=== PATIENT | female | born 1945 | race Caucasian/White ===

== ENCOUNTER → 2016-09-26 | Outpatient (CLI) | payer MEDICARE, BC ==
[~2016-09-26] MED LIST: ALDACTONE25 MG PO; AMARYL4 MG PO; ASPIRIN LO-DOSE81 MG PO; BYDUREON P2 MG/0.65 SUB-Q; COREG12.5 M1 PO; COREG12.5 MG PO; COUMADIN ** IA5 MG PO; CPAP INH; DELTASONE1 MG PO; DELTASONE10 MG PO; DELTASONE5 MG PO; DULCOLAX10 MG R; EFFEXOR XR150 MG PO; FOSAMAX70 MG PO; GLUCOPHAGE XR500 M1 PO; JANUVIA 100 MG100 MG PO; LASIX20 MG PO; LASIX40 MG PO; LIPITOR10 MG PO; LISINOPRIL5 MG PO; LOVENOX 12120 MG/0.8; LOVENOX 4040 MG/0.4 PO; MILK OF MA400 MG/5 M PO; NEURONTIN300 MG PO; NUCYNTA50 MG PO; OXYGEN M-15 INH; PRILOSEC20 MG PO; PRINIVIL OR ZES10 MG PO; REQUIP4 MG PO; RYTHMOL SR (SU225 MG PO; THERAGRAN-M1 TAB PO; TRIACET 0.1% 8080 GM TOP; TYLENOL EXTRA500 MG PO; TYLENOL325 MG PO; ULTRAM50 MG PO; VICTOZA 2-0.6 MG/0.1 SUB-Q; VITAMIN D-32000 UNI1 PO; XANAX0.25 MG PO; ZYLOPRIM100 MG PO
== END | disposition disaster alternative care site (69) ==
LOC: GRAD 13:47
PROC: 3E0U3KZ Introduction of Other Diagnostic Substance into Joints, Percutaneous Approach (ICD-10-PCS; principal; 2016-09-26)
DX: M25.572 Pain in left ankle and joints of left foot (principal)

== ENCOUNTER → 2017-01-26 | Outpatient (CLI) | payer MEDICARE, BC ==
--- NOTE | ~2017-01-26 | NDGEN ---
PATIENT'S NAME: DOLLY AGUILAR [facility] AGE: 71 Y [address] ROOM: [place] [address] LOCATION: [facility] ADMIT DATE: 01/26/2017 Neurodiagnostics DISCHARGE DATE: FAMILY PHYSICIAN: MAY KAY MD ATTENDING PHYSICIAN: JIGNA SALINAS DATE OF PROCEDURE: 01/26/2017 PROCEDURE: Nerve conduction study of the bilateral lower extremities along with an EMG of the bilateral lower extremities. HISTORY: Ms. Aguilar is a 71-year-old female patient who has a longstanding history of diabetes. She has also had a history of bilateral carpal tunnel repair surgeries. She basically is coming in not due to any more numbness into her hands or fingers, but only due to episodes of falling. She denies any new numbness into her toes or into her legs. She denies having any dizziness or lightheadedness when she falls. DESCRIPTION: Nerve conduction studies were performed in the right upper extremity as well as the bilateral lower extremities. Stimulation of the motor, perineal, and tibial nerves as well as the sural nerve; all resulted in absence of compound motor action potentials and sensory nerve action potentials. In the right upper extremity, there was some mild slowing of the median motor onset latencies, which would be normal for the patient who had a prior carpal tunnel surgery history and some mild diabetes. There was normal amplitudes of the median motor, compound motor action potentials, as well as just a slight delay in the peak onset latencies of the median nerve. The ulnar nerve studies were all within normal limits. Next, a needle was placed into the bilateral lower extremity gastrocnemius and tibialis anterior muscles. There was no evidence of any fibrillation potentials or positive sharp waves with the muscles at rest. Next, the muscles were voluntarily exercised, and on dorsiflexion and plantar flexion of the foot, there was no evidence of any diminished recruitment of motor unit action potentials. The motor units were slightly large in size and polyphasic likely consistent with some chronic neuropathic process. IMPRESSION: There was complete absence of motor unit action potentials and sensory nerve action potentials in the bilateral lower extremities. However, PATIENT'S NAME: DOLLY AGUILAR [facility] AGE: 71 Y [address] ROOM: [place] [address] LOCATION: [facility] ADMIT DATE: 01/26/2017 Neurodiagnostics DISCHARGE DATE: FAMILY PHYSICIAN: MAY KAY MD ATTENDING PHYSICIAN: JIGNA SALINAS the needle study essentially of the lower extremities was all within normal limits. The nerve conduction studies of the right upper extremity were essentially within normal limits. This type of pattern would not be consistent with a generalized disease process such as CIDP nor is the absence of compound motor action potentials and sensory nerve action potentials consistent with her diabetes. 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 The most common type is called Yxdhywf-Nwvpf-Lrxts. This is a process that the person is born with, tends to get worse with demyelination of the distal lower extremities with time. It affects the morphology of the foot causing the foot to have a high-arch feet and hammering of her toes and changes in her position sense at her ankles. This process does not represent a reversible process. Thankfully, the patient has good power on her exam presently and we will watch this underlying issue closely with time. MD LUCAS BLACKMAN/modl /[id number] dtt: 02/01/17 1747 , JIGNA SALINAS. dtd: 01/26/17 1452
== END | disposition disaster alternative care site (69) ==
LOC: GNEU 10:45
DX: G62.9 Polyneuropathy, unspecified (principal); R26.9 Unspecified abnormalities of gait and mobility; R29.898 Other symptoms and signs involving the musculoskeletal system

== ENCOUNTER 2017-02-15 15:00 | Inpatient (IN) | payer MEDICARE, BC ==
[~2017-02-15] VITALS: Ht 162.6 cm; Wt 107.2 kg
--- NOTE | ~2017-02-15 | OR ---
PATIENT'S NAME: DOLLY AGUILAR [facility] AGE: 71 Y [address] ROOM: [place] [address] LOCATION: [facility] ADMIT DATE: 03/01/2017 OR/Procedure Report DISCHARGE DATE: FAMILY PHYSICIAN: MAY KAY MD ATTENDING PHYSICIAN: WALLACE ZAMORA SURGEON: Wallace Zamora MD DATA ENTRY MACHINE OPERATOR: Armin Jensen PA-C. DATE OF PROCEDURE: 03/01/2017 PREOPERATIVE DIAGNOSES: 1. 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 2. Left short Achilles tendon/gastrocnemius equinus. 3. Bilateral third and fourth trigger fingers. POSTOPERATIVE DIAGNOSES: 1. 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 2. Left short Achilles tendon/gastrocnemius equinus. 3. Bilateral third and fourth trigger fingers. PROCEDURES PERFORMED: 1. Left total ankle arthroplasty. 2. Left gastrocnemius recession procedure. 3. Bilateral third and fourth trigger finger cortisone injections. 4. Use of intraoperative fluoroscopy, less than 1 hour. ANESTHESIA: General endotracheal anesthesia and peripheral nerve blocks. FLUIDS: See anesthesia report. ESTIMATED BLOOD LOSS: Minimal. TOURNIQUET: Left proximal thigh 250 mmHg. SPECIMEN: None. COMPLICATIONS: None. DISPOSITION: Stable in PACU. COUNTS: All counts were correct. IMPLANTS: Include a [place] STAR left total ankle arthroplasty with a size medium tibia plate, size extra-small talar component, and size 6 mm polyethylene liner. PATIENT'S NAME: DOLLY AGUILAR [facility] AGE: 71 Y [address] ROOM: [place] [address] LOCATION: [facility] ADMIT DATE: 03/01/2017 OR/Procedure Report DISCHARGE DATE: FAMILY PHYSICIAN: MAY KAY MD ATTENDING PHYSICIAN: WALLACE ZAMORA INDICATIONS: Ms. Aguilar is a pleasant 71-year-old female who underwent the noted procedures above. The risks, benefits, and alternatives pursuing surgical intervention were discussed with the patient in detail. The patient elected to proceed with surgery as noted above. Anesthesia was consulted for their perioperative evaluation of the patient. I marked the patient's left lower extremity and her bilateral hands indicating the correct procedural sites. DESCRIPTION OF PROCEDURE: The patient brought from the holding area to the operating room. A time-out was performed. General endotracheal anesthesia was administered. Left lower extremity was then prepped and draped in a sterile fashion. An Esmarch was used to exsanguinate the limb. The tourniquet was inflated to 250 mmHg. I turned my attention to the medial aspect of the leg. Using a 15 blade knife, I did a skin incision through skin, subcutaneous tissue, down through muscle fascia, down to the gastrocnemius aponeurosis. I performed a gastrocnemius recession procedure. I did dorsiflex the ankle and achieved improved dorsiflexion. The wound was then copiously irrigated and closed in layers. I turned my attention to the anterior aspect of the ankle. Using a 15 blade knife, I made an anterior incision to access the ankle joint. The skin incision was carried through skin, subcutaneous tissue, extensor retinaculum, and joint capsule. I tagged the extensor retinaculum using 0 Vicryl suture and tagged it for later. Once the joint was exposed, I removed any osteophytes that were in the way using a rongeur and curette. I then turned my attention to the distal tibia. Using intraoperative fluoroscopy, I position my tibia jig. The pin was placed in the tibial tuberosity at the level of the knee and then the jig was placed and positioned appropriately at the level of the ankle mortise. I subsequently pinned it in place. Using oscillating saw, I performed my distal tibia cut. The tibia bone was removed with an osteotome and curette. I then turned my attention to the talar dome. Using a curved quarter-inch osteotome, I removed any excess cartilage from the talar dome. I then used my jig provisionally to pin it in place in order to make my cut using an oscillating saw. The cut was made without consequence. I finished the chamfer cuts, the posterior cut and the medial and lateral chamber cuts. Using the oscillating saw after the tibia cut, I got into the medial aspect of the fibula but did not create an iatrogenic fracture. It did appear stable. PATIENT'S NAME: DOLLY AGUILAR [facility] AGE: 71 Y [address] ROOM: [place] [address] LOCATION: [facility] ADMIT DATE: 03/01/2017 OR/Procedure Report DISCHARGE DATE: FAMILY PHYSICIAN: MAY KAY MD ATTENDING PHYSICIAN: WALLACE ZAMORA I back filled this with bone with bone graft that I had from my distal tibia cut. I then placed trial components. I sized the trial components and found them to be stable. I then irrigated out. I drilled barrel holes in the distal tibia for my final tibial component. I again copiously irrigated the joint. I then placed my talar component and confirmed its position fluoroscopically. I then placed my tibial component and confirmed its position fluoroscopically. I trialed to a size 6 polyethylene liner that appeared stable. I confirmed fluoroscopically well-position and well-placed left total ankle arthroplasty that achieved approximately 10 degrees of dorsiflexion past neutral and 40 degrees of plantar flexion. The ankle was intrinsically stable. The medial malleolus and lateral malleolus were also stable. Final fluoroscopic images revealed this. I then back filled the barrel holes of the distal tibia with residual autogenous bone graft. Using 0 Vicryl suture, I approximated the extensor retinaculum followed by a layered closure with 0 Vicryl suture, followed by 2-0 Vicryl suture, and caitlyn to approximate the skin. Sterile dressing was then placed in the form of Xeroform, followed by 4x4 and Webril. The tourniquet was let down and the toes reperfused. The patient was then placed into a well-padded short-leg splint with the ankle in neutral dorsiflexion. I then turned my attention to the patient's left hand. The patient had a third and fourth trigger finger. I injected 1 mL of 1% lidocaine without epinephrine mixed with 1 mg of Depo-Medrol corticosteroid. I prepped the finger using an alcohol swab. I identified the source of a triggering at the third digit of the left hand. I injected 1 mL around the extensor sheath. I took the finger through range of motion and was unable to reproduce the triggering. I repeated this injection for the fourth finger as well. I then turned my attention to the right hand. Again I prepped and draped the third and fourth fingers. They did trigger. I subsequently injected 1 mL of the lidocaine mixed with corticosteroid in the third finger and then the fourth finger. I took the fingers through range of motion and was not able to reproduce triggering. Band-Aids were placed over both third and fourth fingers in bilateral hands. The patient was then transferred from the operating table onto the stretcher and extubated. She was brought to the recovery room in stable condition. PATIENT'S NAME: DOLLY AGUILAR [facility] AGE: 71 Y [address] ROOM: [address] [address] LOCATION: [facility] ADMIT DATE: 03/01/2017 OR/Procedure Report DISCHARGE DATE: FAMILY PHYSICIAN: MAY KAY MD ATTENDING PHYSICIAN: WALLACE ZAMORA There were no intraoperative complications noted. Of note, my PA, Armin Jensen PA-C, played an integral role in the intraoperative care of this patient. This included preoperative positioning, intraoperative expert retraction, and closing and splinting functions. IMPRESSION: The patient is status post the noted procedures above. PLAN: The patient will be nonweightbearing on the left lower extremity in a splint. We encouraged to rest, ice, and elevate the leg going forward. Postoperative pain control will be in the form of Percocet and IV morphine as needed for pain. There are peripheral nerve blocks in place as well. DVT prophylaxis will be in the form of Lovenox. The patient may be weightbearing as tolerated in her bilateral hands. The bandage may stay in place until the drainage stops. Physical Therapy and Occupational Therapy will consult for early ambulation and prevention of deconditioning. The hospitalist will manage the patient's concomitant medical comorbidities. Postoperative antibiotics will be administered per routine. Ancef antibiotic was administered postoperatively and was administered perioperatively. I will continue to monitor the patient closely in the postoperative period. MD ASHWIN JACKSON/modl /[id number] d: 03/01/172311 t: 03/02/17820, OPERATIVE SUMMARY
--- NOTE | ~2017-02-15 | DS ---
[facility]GE[facility] 71 Y [address] ROOM: [address] [address] [place] [facility] [place]: 03/01/2017 Discharge Summary DISCHARGE DATE: 03/06/2017 FAMILY PHYSICIAN: Vega Sims MD ATTENDING PHYSICIAN: Wallace Yip PRIMARY DIAGNOSES: 1. Degenerative joint disease of left ankle. 2. Left short Achilles tendon/gastrocnemius equinus. 3. Bilateral 3rd and 4th trigger fingers. DISCHARGE DIAGNOSES: 1. Degenerative joint disease of left ankle. 2. Left short Achilles tendon/gastrocnemius equinus. 3. Bilateral 3rd and 4th trigger fingers. SECONDARY DIAGNOSES: 1. Hypertension. 2. Diabetes mellitus type 2. 3. Hypercholesterolemia. 4. Paroxysmal atrial fibrillation. 5. Gastroesophageal reflux disease. 6. Restless legs syndrome. 7. Obstructive sleep apnea. 8. Depression. 9. Obesity. PROCEDURES: The following procedures were performed by Dr. Yip on March 01, 2017. 1. Left total ankle arthroplasty. 2. Left gastrocnemius recession. 3. Bilateral 3rd and 4th trigger finger cortisone injections. CONSULTATION: Hospitalist Service for medical management. HISTORY OF PRESENT ILLNESS: The patient is a pleasant 71-year-old female, who has been treated by Dr. Yip in the past for symptomatic left ankle arthritis. She was seen in followup accompanied by her son. The patient reported that her ankle was more symptomatic than it had been, and total ankle arthroplasty was discussed. It was determined at that time the patient would benefit from surgery andarrangements were made to proceed. HOSPITAL COURSE: The patient was admitted on March 01, 2017, and underwent the above described procedures and tolerated them well. The patient was kept [facility]GE: 71 Y [address] ROOM: [address] [address] [place] [facility] [place]: 03/01/2017 Discharge Summary DISCHARGE DATE: 03/06/2017 FAMILY PHYSICIAN: Vega Sims MD ATTENDING PHYSICIAN: Wallace Yip nonweightbearing of her left lower extremity in a splint. Her analgesia was adequate throughout the hospital stay with medication adjustments as needed. She was on a Lovenox bridge until her INR was therapeutic again. The patient worked with physical therapy on transfer training while in the hospital. The hospitalist did manage her medically through her stay and optimized her for discharge. The patient originally was going to go home on home health, but it was determined that she would benefit for a short stay in the [facility] and once stable was transferred to their facility on March 06, 2017. DISCHARGE MEDICATIONS: Changed medications: 1. Acetaminophen was changed to 500 mg 2 tabs every 6 hours p.r.n. pain. 2. Lovenox 120 mg b.i.d. to Lovenox 40 mg subcu daily until INR is therapeutic. Stop medication: 1. Glimepiride 4 mg daily. New medications: 1. Dilaudid 2 mg 1 to 2 tabs every 4 hours as needed for pain. 2. Valium 5 mg 1/2 to 1 tablet every 6 hours p.r.n. muscle spasms. 3. Glucagon vial and glucagon tabs were prescribed for p.r.n. hypoglycemia. 4. MiraLAX 17 g powder p.o. b.i.d. p.r.n. constipation. 5. NovoLog per mild sliding scale. 6. Colace 100 mg p.o. b.i.d. as needed for constipation. 7. The patient was otherwise instructed to continue her preadmission medications as instructed by her internal medicine doctor. DISCHARGE INSTRUCTIONS: The patient is to be nonweightbearing of left lower extremity. She is to keep her splint clean, dry, and intact. She is to follow an ADA diet. The patient will work with Occupational and Physical Therapy while in [facility]. FOLLOWUP: The patient is to follow up with her PCP in regard to her INR and will have daily INRs drawn. She is to follow up with Dr. Yip' office in 2 weeks postoperatively for her initial postoperative visit and new x-rays at that time. Discharge status is good. REG ALANIZ PA-C FOR MD CORDELL JACKSON/brannon /[id number] d: 03/15/17 0234 t: 03/15/17 1522, DISCHARGE SUMMARY
[~2017-02-15 15:00] MED LIST changes: -JANUVIA 100 MG100 MG PO; -LOVENOX 12120 MG/0.8; -LOVENOX 4040 MG/0.4 PO; -ULTRAM50 MG PO
[2017-02-15] MEDS ORDERED: XANAX0.25 MG PO (16:15)
[2017-02-15] MEDS ORDERED: LASIX20 MG PO (16:17)
[2017-02-15] MEDS ORDERED: DELTASONE1 MG PO (16:19)
[2017-02-15] MEDS ORDERED: JANUVIA 100 MG100 MG PO (16:24)
[2017-03-01] MEDS ORDERED: LOVENOX 12120 MG/0.8 (11:23)
[2017-03-01 11:48] LABS: INR - (THERAPEUTIC) 1.08 (0.92-1.07); PROTIME 11.4 SECONDS (9.8-11.4)
[2017-03-01 12:10] LABS: BASOPHIL # 0.1 K/uL (0.0-0.2); BASOPHIL % 0.8 %; EOSINOPHIL # 0.3 K/uL (0.0-0.5); EOSINOPHIL % 3.5 %; HEMOGLOBIN 12.3 g/dL (10.0-15.0); IMMATURE GRANULOCYTE % 0.4 %; LYMPHOCYTE # 1.7 K/uL (0.8-4.0); LYMPHOCYTE % 19.7 %; MCHC 33.2 gm/dL (32.0-36.5); MCV 93.2 fl (83.0-98.0); MONOCYTE # 0.8 K/uL (0.0-1.0); MONOCYTE % 9.7 %; MPV 9.3 fl (9.4-12.4); NEUTROPHIL # (ANC) 5.6 K/uL (1.8-7.8); NEUTROPHIL % 65.9 %; NRBC % 0 /100WBC (0-0.00); PLATELET COUNT 249 K/uL (150-450); RBC 3.97 M/uL (3.50-5.50); RDW-CV 13.3 % (11.9-14.6); WBC 8.5 K/uL (4.0-11.0)
--- NOTE | 2017-03-01 17:05 | NUR ---
Significant Event: Patient came up form PACU at 1645. AOx3. VSS. Patient can wiggle toes but has numbness. DIlaudid 2mg tab given in PACU. NWB to L)ankle. Has not been up yet. On clear liquids. LR running at 80ml/hr in R) wrist. AC&HS accuchecks. Follow up:
[2017-03-02 01:23] LABS: BILIRUBIN URINE NEGATIVE (NEGATIVE); BLOOD URINE NEGATIVE /UL (NEGATIVE); GLUCOSE URINE NEGATIVE (NEGATIVE); KETONE URINE NEGATIVE (NEGATIVE); LEUKOCYTES URINE 25 /UL (NEGATIVE); NITRITE URINE NEGATIVE (NEGATIVE); PROTEIN URINE NEGATIVE (NEGATIVE); UROBILINOGEN URINE NORMAL (NORMAL)
[2017-03-02 01:25] LABS: COLOR URINE COLORLESS (YELLOW); TURBIDITY URINE CLEAR (CLEAR)
[2017-03-02 01:31] LABS: BACTERIA URINE FEW (NEGATIVE); EPITHELIAL URINE 0-2 #/HPF (NEGATIVE); RBC URINE NEGATIVE #/HPF (NEGATIVE)
--- NOTE | 2017-03-02 03:10 | NUR ---
Significant Event: Dressings are clean, dry and intact. CSM's WNL. Voids frequently. Started on Levaquin. Wears 2L of oxygen and CPAP at night. Accu check. Last Dilaudid IV at 0229. Dilaudid at 0230. Valium at 0049. 1 assist with transfers to bedside commode. NWB to L) leg. Follow up:
[2017-03-02 05:29] LABS: INR - (THERAPEUTIC) 1.09 (0.92-1.07); PROTIME 11.5 SECONDS (9.8-11.4)
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
--- NOTE | 2017-03-02 16:34 | NUR ---
Significant Event: pt alert and oriented. up in the recliner this shift.alot of pain about 1100 this morning with lots of pain meds given. torodol given and that worked to control pain. diluadid increased to 4mg pt. last dose at 1627. torodol given at 1232. valium also given at this afternoon. rates pain at a 4 now. ice to leg and leg elevated. voids well. no bm today. unsure of discharge date. Follow up:
--- NOTE | 2017-03-03 03:38 | NUR ---
Pt had pain issues at beg. of shift, received toradol at 194. Pt on po dilaudid 4mg last at 134 will offer again. Pt NWB, one assist to commode. Accucheck 150. Levaquin for urine. CPAP at night. Dressing C/D/I. CSM's intact.
[2017-03-03 06:17] LABS: INR - (THERAPEUTIC) 1.26 (0.92-1.07); PROTIME 13.3 SECONDS (9.8-11.4)
--- NOTE | 2017-03-03 12:30 | NUR ---
SPOKE TO PATIENT TO UPDATE HER THAT [facility] HAS BEEN ARRANGED. SHE INFORMS ME THAT SHE HAS SPOKEN TO ALVERTO AND THEY HAVE DECIDED THAT SHE SHOULD GO TO THE [facility] IN [place].SHE HAS SEEN Maria Teresa TENA APRN IN THE PAST. I NOTIFIED DR. GARCIA AND ALSO SPOKE TO REG SAENZ WITH DR. ZAMOAR AND UPDATED THEM OF THE CHANGE IN PLANS. THEY ARE OK WITH THIS. DR. KAY IS HER PCP AND HE IS HERE TO TALK TO PATIENT HE RECEIVED CALL FROM FAMILY VOICING CONCERNS ABOUT DOLLY GOING HOME AND THEY ARE REQUESTING THAT SHE GO TO THE [facility] IN [place]. DR. KAY IS IN AGREEMENT TO THIS. I MADE REFERRAL TO THE [facility] IN [place] BUT HAD TO LEAVE A MESSAGE ON VOICE MAIL. NOTIIFED PAYAL WITH [facility] AND UPDATED HER ON THE CHANGE OF PLANS.
--- NOTE | 2017-03-03 13:56 | NUR ---
RECEIVED CALL FROM AMANDA CORDNATOR AT THE [facility]. SHE WOULD LIKE FOR ME TO FAX INFO TO HER SHE WILL REVIEW IT AND GET BACK TO ME. SHE REPORTS THAT THE SOONEST THEY CAN ACCEPT HER IF THEY WERE TO TAKE HER IS ON MONDAY.
--- NOTE | 2017-03-03 16:39 | NUR ---
RECEIVED CALL FROM DEIDRE AT THE [facility]. SHE HAS REVIEWED THE INFO THAT IF FAXED WITH THE TEAM AND THEY CAN ACCEPT PATIENT ON MONDAY. SHE WOULD LIKE AN UPDATE ON Monday AND AT THAT TIME SHE WILL GIVE THE THE CONTACT NUMBER FOR DOCTOR TO DOCTOR AND WILL ARRANGE TIME FOR PATIENT TO GO. WILL UPDATE DOLLY.
--- NOTE | 2017-03-03 16:44 | NUR ---
Pt alert, oriented this morning. This afternoon has had slower speech, sleepy and trouble finishing sentences. Pt had zofran and phenergan IM this morning for nausea and vomitting. It started after breakfast and since subsided but Dr Hernandez thinks she is sleepy and lethargic this afternoon from phenergan. ETCO2 monitor on and O2 at 3 liters for sats that dipped to 84%. Came up to 93 % and ETCO2 is 41. Pt has rated pain at 4 all shift and no analgesics given. Legs elevated. SPlint dry and intact. CSM IVETTE Left lower leg. Pt has voided on commode x4 and urge incontinence at times. Pt says she feels "funny" this afternoon. Pt has CPAP she uses at [facility]. Plan for [facility] Monday. Pt BS 105 and 128 today. DIdn't eat lunch. Pt uses IS when reminded. Pt is NWB to left leg and pivot transfer with one assist, walker and gait belt.
--- NOTE | 2017-03-03 16:57 | NUR ---
SPOKE TO ZULAY AND UPDATED HER THAT THE [facility] WILL HAVE A BED FOR HER ON MONDAY. SHE IS HAPPY ABOUT THIS I ATTEMPTED TO CONTACT HER SON ALVERTO PER HER REQUEST BUT UNABLE TO GET AHOLD OF HIM. NOTIFIED DR. GARCIA AND UPDATED HER. PACKET STARTED.
--- NOTE | 2017-03-03 19:17 | NUR ---
ASSUMED CARE FROM MELISSA ON 3N AT 1705. PATIENT ALERT AND ORIENTED X3. VSS. UP WITH 1PA PIVOT TO BEDSIDE COMMODE. PLEASANT AND COOPERATIVE. TRANSFERRED DOWN FROM 3N.
--- NOTE | 2017-03-04 04:19 | NUR ---
Significant Event: Alert/disoriented to time, better throughout night. Headache early on, better. Ankle no pain - scheduled Tylenol ES,; Dilaudid 4 mg at 1852. Hypertensive SBP 130s to 150s. CPAP at night, 2 LPM - kept O2 sats in 90s. Accuchecks AC, HS, 93 at HS, no insulin required per sliding scale. 2 assist ambulation/transfers. 4 voids per bedside commode. Dressing C/D/I. Ice applied to ankle. Can wiggle toes, warm, pink. Uses IS when reminded. Did not eat dinner. NWB left leg. Follow up:
[2017-03-04 05:28] LABS: INR - (THERAPEUTIC) 1.46 (0.92-1.07); PROTIME 15.4 SECONDS (9.8-11.4)
--- NOTE | 2017-03-04 16:10 | NUR ---
Significant Event:denies pain, drowsy all morning then after noon more alert and aware of how drowsy/groggy she was, up to commode x5, VSS, Blood sugar 68 at 07-took 2 juices to bring back up to 81, 11-148, uses IS with encouragement Follow up:Victoza not available from patient own meds
--- NOTE | 2017-03-05 01:36 | NUR ---
REFUSED HER CPAP TONIGHT DUE TO FEELING NAUSOUS.
--- NOTE | 2017-03-05 05:04 | NUR ---
Significant Event: Assumed pt cares at 2015. Pt alert and oriented. Cooperative with cares. Up with 1-2 assist and use of walker. Pt is non wt bearing to left foot. Dressing to left foot intact and clean and dry. Scheduled tylenol controlling pain well. Wears CPAP at night. HS blood sugar was 132, no coverage given. Did complain of some nausea, zofran given with relief noted. VSS. Will continue to monitor at this time. Follow up:
[2017-03-05 05:26] LABS: INR - (THERAPEUTIC) 1.55 (0.92-1.07); PROTIME 16.4 SECONDS (9.8-11.4)
--- NOTE | 2017-03-05 17:37 | NUR ---
Significant Event: Transfers with one assist, walker and gaitbelt. Maintains NWB to L) foot. Tylenol 1000mg last at 1651. Accuchecks ACHS, 213 at supper, received 2 units coverage. Voids per commode, moderate BM this shift. Dressing C/D/I. Plans to transfer to [facility] tomorrow, time unsure. Follow up:
--- NOTE | 2017-03-06 04:38 | NUR ---
Significant Event: Pt alert and oriented. Non weight bearing left. Up with 1 assist and walker. Dressing to left lower leg, cl/dry/intact. Wears c-pap at night. HS blood sugar 98, HS snack given around 2230. No c/o pain, scheduled tylenol q 6 hours. Follow up: Plan to go to [place] [facility] today, time to be determined Monday morning.
[2017-03-06 04:56] LABS: INR - (THERAPEUTIC) 1.6 (0.92-1.07); PROTIME 16.9 SECONDS (9.8-11.4)
--- NOTE | 2017-03-06 09:00 | NUR ---
RECEIVED CALL FROM RAKESH MURDOCK AT THE [facility], WANTING UPDATE ON DOLLY AND SHE INFORMS ME THAT THEY AKI PLANNING ON HER COMING TODAY. I ATTEMTPED TO CONTACT HER BUT HAD TO LEAVE A MESSAGE HER VOICE MAIL. TO CONTACT ME.
--- NOTE | 2017-03-06 10:00 | NUR ---
RECEIVED CALL FROM TERRANCE'S SON ALVERTO HE WILL TRANSFERE PATIENT VIA CAR AND WILL BE HERE AT 1300. I ATTEMPTED TO CONTACT RAKESH THE [facility] BUT HAD TO LEAVE ANOTHER MESSAGE ON HER VOICE MAIL.
--- NOTE | 2017-03-06 11:15 | NUR ---
RECEIVED CALL FROM CHARLETTE AT THE [facility].SHE GAVE ME THE CONTACT NUMBER FOR Maria Teresa TENA APRN [phone], THE NURSE TO NURSE NUMBER IS [phone] AND SHE WOULD LIKE ORDERS FAXED TO HER AT [phone]. I SPOKE TO ZULAY AND SHE IS IN AGREEMENT TO GOING TO THE IN [place]. SPOKE TO Daria MANCERA APRN AND ALSO REG SAENZ THEY ARE COMPLETEING THE PAPER WORK AND REG SAENZ HAS THE CONTACT NUMBER FOR Maria Teresa TENA.
--- NOTE | 2017-03-06 12:01 | NUR ---
D: Patient vital signs stable patient blood pressure slightly elevated at 166/86 this am blood pressure medications administered as ordered. Patient up for a shower today. Patient is NWB and is currently just piviting to the bedside chair and/or wheelchair. Patient accuchecks this am 93 no correction, prior to lunch 209 will correct with insulin when lunch arrives. Patient does have brief on for some urgency and incontinence. David to left lower leg intact no drainage noted. Patient denies any numbness/tingling.,
--- NOTE | 2017-03-06 13:30 | NUR ---
FAXED DISCHARGE ORDERS TO CHARLETTE AT THE [facility].
[2017-03-22] MEDS ORDERED: LOVENOX 4040 MG/0.4 PO (13:19)
[2017-03-22] MEDS ORDERED: ULTRAM50 MG PO (13:22)
== END 2017-03-06 13:25 | disposition swing bed (61) | DRG 470 ==
LOC: G3N 03-01 10:26 → GMSU 03-03 17:01
PROVIDERS: Internal Medicine; ADMIT Orthopaedic Surgery Adult Reconstructive Orthopaedic Surgery
PROC: 3E0U3BZ Introduction of Anesthetic Agent into Joints, Percutaneous Approach (ICD-10-PCS; principal; 2017-03-01)
PROC: 3E0U33Z Introduction of Anti-inflammatory into Joints, Percutaneous Approach (ICD-10-PCS; principal; 2017-03-01)
PROC: 0L8P0ZZ Division of Left Lower Leg Tendon, Open Approach (ICD-10-PCS; principal; 2017-03-01)
PROC: 0SRG0JZ Replacement of Left Ankle Joint with Synthetic Substitute, Open Approach (ICD-10-PCS; principal; 2017-03-01)
DX: M19.072 Primary osteoarthritis, left ankle and foot (principal); Z99.81 Dependence on supplemental oxygen; I48.0 Paroxysmal atrial fibrillation; I10 Essential (primary) hypertension; G25.81 Restless legs syndrome; F32.9 Major depressive disorder, single episode, unspecified; Z68.41 Body mass index [BMI] 40.0-44.9, adult; M67.02 Short Achilles tendon (acquired), left ankle; Z79.01 Long term (current) use of anticoagulants; E11.9 Type 2 diabetes mellitus without complications; E78.00 Pure hypercholesterolemia, unspecified; K21.9 Gastro-esophageal reflux disease without esophagitis; G47.33 Obstructive sleep apnea (adult) (pediatric); E66.01 Morbid (severe) obesity due to excess calories; R30.0 Dysuria; M65.332 Trigger finger, left middle finger; M65.342 Trigger finger, left ring finger
CPT/HCPCS: C1776; J0690; J1030; J1040; J1170; J1650; J1720; J1885; J2001; J2250; J2405; J2550; J7030; J7512

== ENCOUNTER → 2017-02-16 | Outpatient (CLI) | payer MEDICARE, BC ==
[~2017-02-16] MED LIST changes: +JANUVIA 100 MG100 MG PO; +LOVENOX 12120 MG/0.8; +LOVENOX 4040 MG/0.4 PO; +ULTRAM50 MG PO
== END | disposition disaster alternative care site (69) ==
LOC: GRAD 08:07 → GNJRC 11:00
DX: M19.072 Primary osteoarthritis, left ankle and foot (principal); M25.772 Osteophyte, left ankle; Z98.890 Other specified postprocedural states

== ENCOUNTER → 2017-02-20 | Outpatient (CLI) | payer MEDICARE, BC ==
[2017-02-20 09:41] LABS: INR - (THERAPEUTIC) 2.7 (0.92-1.07); PROTIME 28.6 SECONDS (9.8-11.4)
== END | disposition disaster alternative care site (69) ==
LOC: LGSMG 09:31
PROVIDERS: Internal Medicine
DX: Z01.818 Encounter for other preprocedural examination (principal)

== ENCOUNTER 2017-02-23 15:41 | Emergency (ER) | payer MEDICARE, BC ==
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
[~2017-02-23 15:41] MED LIST changes: -LOVENOX 12120 MG/0.8; -LOVENOX 4040 MG/0.4 PO; -ULTRAM50 MG PO
[2017-02-23 16:10] LABS: BASOPHIL # 0.1 K/uL (0.0-0.2); BASOPHIL % 0.9 %; EOSINOPHIL # 0.3 K/uL (0.0-0.5); EOSINOPHIL % 3.7 %; HEMATOCRIT 38.2 % (33.0-46.0); HEMOGLOBIN 12.8 g/dL (10.0-15.0); IMMATURE GRANULOCYTE % 0.3 %; LYMPHOCYTE # 1.6 K/uL (0.8-4.0); LYMPHOCYTE % 24.3 %; MCH 31.1 pg (27.0-34.0); MCHC 33.5 gm/dL (32.0-36.5); MCV 92.7 fl (83.0-98.0); MONOCYTE # 0.7 K/uL (0.0-1.0); MONOCYTE % 10.2 %; MPV 9.1 fl (9.4-12.4); NEUTROPHIL # (ANC) 4.1 K/uL (1.8-7.8); NEUTROPHIL % 60.6 %; NRBC % 0 /100WBC (0-0.00); PLATELET COUNT 230 K/uL (150-450); RBC 4.12 M/uL (3.50-5.50); RDW-CV 13.2 % (11.9-14.6); WBC 6.7 K/uL (4.0-11.0)
[2017-02-23 16:17] LABS: BILIRUBIN URINE NEGATIVE (NEGATIVE); BLOOD URINE NEGATIVE /UL (NEGATIVE); COLOR URINE YELLOW (YELLOW); GLUCOSE URINE NEGATIVE (NEGATIVE); KETONE URINE NEGATIVE (NEGATIVE); LEUKOCYTES URINE 25 /UL (NEGATIVE); NITRITE URINE NEGATIVE (NEGATIVE); PROTEIN URINE NEGATIVE (NEGATIVE); TURBIDITY URINE CLEAR (CLEAR); UROBILINOGEN URINE NORMAL (NORMAL)
[2017-02-23 16:20] LABS: INR - (THERAPEUTIC) 2.89 (0.92-1.07); PROTIME 30.7 SECONDS (9.8-11.4); PTT 38 SECONDS (25-32)
[2017-02-23 16:28] LABS: ALBUMIN 3.3 gm/dL (3.5-5.0); ALK PHOS 47 IU/L (33-138); ALT 25 IU/L (12-78); ANION GAP 13.4 (10.0-19.0); AST 21 IU/L (10-40); BLOOD UREA NITROGEN 15 mg/dL (6-24); CALCIUM 8.4 mg/dL (8.5-10.5); CHLORIDE 106 mMol/L (96-110); CO2 24 mMol/L (22-32); CPK 43 IU/L (21-215); CREATININE 1.1 mg/dL (0.5-1.1); MAGNESIUM 1.5 mg/dL (1.8-2.6); POTASSIUM 4.4 mMol/L (3.7-5.1); SODIUM 139 mMol/L (135-145); TOTAL BILIRUBIN 1.3 mg/dL (0.0-1.5); TOTAL PROTEIN 7.1 g/dL (6.0-8.4)
[2017-02-23 16:29] LABS: BACTERIA URINE MANY (NEGATIVE); RBC URINE NEGATIVE #/HPF (NEGATIVE); WBC CLUMPS URINE RARE (NEGATIVE)
[2017-02-23 18:19] LABS: CPK 39 IU/L (21-215)
[2017-03-22] MEDS ORDERED: LOVENOX 4040 MG/0.4 PO (13:19)
[2017-03-22] MEDS ORDERED: ULTRAM50 MG PO (13:22)
== END 2017-02-23 18:37 | disposition disaster alternative care site (69) ==
LOC: GMED 15:41
PROVIDERS: Emergency Medicine
DX: R07.9 Chest pain, unspecified (principal); I10 Essential (primary) hypertension; E11.9 Type 2 diabetes mellitus without complications; K21.9 Gastro-esophageal reflux disease without esophagitis; I48.91 Unspecified atrial fibrillation; Z90.49 Acquired absence of other specified parts of digestive tract; Z90.710 Acquired absence of both cervix and uterus; Z98.890 Other specified postprocedural states; Z88.5 Allergy status to narcotic agent; Z88.4 Allergy status to anesthetic agent; Z91.041 Radiographic dye allergy status; Z88.8 Allergy status to other drugs, medicaments and biological substances; Z79.82 Long term (current) use of aspirin; Z79.01 Long term (current) use of anticoagulants; Z79.899 Other long term (current) drug therapy; V49.40XA Driver injured in collision with unspecified motor vehicles in traffic accident, initial encounter